=== PATIENT | male | born 1965 | race Caucasian/White ===

== ENCOUNTER 2017-01-01 09:08 | Day surgery (SDC) | payer OTHER ==
[~2017-01-01 09:08] MED LIST: DIPHENHYDRAMINE HCL 50 MG/ML VIAL ONE; EPINEPHRINE INJ 1 MG/10 ML DISP.SYRIN ONE; FLUMAZENIL INJ 0.5 MG/5 ML VIAL IV ONE; GLUCAGON,HUMAN RECOMB 1 MG INJ ONE; NALOXONE HCL INJ/PF 0.4 MG/1 ML SDV ONE; ONDANSETRON HCL INJ/PF 4 MG/2 ML SDV ONE
[2017-01-01] MEDS: MIDAZOLAM 2 MG/2 ML INJ ONE ×3 (09:29→09:37)
[2017-01-01] MEDS: FENTANYL CITRATE INJ/PF 100 MCG/2 ML AMPUL ONE ×2 (09:31→09:32)
--- NOTE | 2017-01-01 09:47 | Operative Report ---
Operative Report DATE OF SURGERY: 01/01/17 Operative Report: The risks, benefits and alternatives of the procedure including risks of bleeding, perforation requiring surgery are explained to the patient detail and informed consent is obtained. Patient is placed in left lateral decubital position. Timeout is called. Conscious sedation medications administered. A rectal examination was done which did not reveal any masses tears or fissures. An Olympus videoscope was inserted into the patient's rectum. The scope was then gradually advanced all the way to the cecum. The cecum was identified by the usual anatomical landmarks including the ileocecal valve as well as the appendiceal office. Photodocumentation was obtained. Scope was then sequentially pulled back via the various segments of the colon including the ascending colon, hepatic flexure, transverse colon, splenic flexure, descending colon and finally into the rectosigmoid portions of the colon. Retroflexion maneuvers performed. PREOPERATIVE DIAGNOSIS: Colorectal cancer screening POSTOPERATIVE DIAGNOSIS: Normal screening colonoscopy. Incidental finding of diverticulosis and some internal hemorrhoids OPERATION: Diagnostic colonoscopy SURGEON: CHERYL BANDA ANESTHESIA: Moderate Sedation - 6 mg of Versed, 100 g of fentanyl. Conscious sedation monitoring time 30 minutes. TISSUE REMOVED OR ALTERED: None. COMPLICATIONS: None. ESTIMATED BLOOD LOSS: none. INTRAOPERATIVE FINDINGS: As described above. PROCEDURE: Patient tolerated procedure well. No immediate postprocedure complications are noted. Patient is discharged in good condition. Discharge date 01/01/2017. Discharge diet: Regular. Discharge activity: Regular. 10 year surveillance of be adequate Patient is instructed to call the office or proceed to the emergency room should there be any further problems or questions.
[2017-01-01 10:57] VITALS: BP 105/73
== END 2017-01-01 10:50 | disposition home or self-care (01) ==
LOC: END 09:08
PROVIDERS: ATTEND Internal Medicine Gastroenterology
PROC: 0DJD8ZZ Inspection of Lower Intestinal Tract, Via Natural or Artificial Opening Endoscopic (ICD-10-PCS; principal; 2017-01-01 10:00)
DX: Z12.11 Encounter for screening for malignant neoplasm of colon (principal); K57.30 Diverticulosis of large intestine without perforation or abscess without bleeding; K64.8 Other hemorrhoids
CPT/HCPCS: 45378; J2250; J3010; J0171; J1200; J1610; J2310; J2405; J3490